=== PATIENT | female | born 1995 | race Asian ===

== ENCOUNTER 2017-01-13 16:20 | Emergency (ER) | payer OTHER ==
[~2017-01-13] VITALS: Ht 165.1 cm; Wt 49.0 kg
[2017-01-13 16:23] VITALS: Ht 165.1 cm; Wt 49.0 kg
--- NOTE | 2017-01-13 16:52 | ERA ---
ER Documentation Chief Complaint Date/Time DATE: 01/13/17 TIME: 16:42 Chief Complaint suicidal ideation JAYASHREE Is a 21-year-old female with a past medical history of diabetes presents to the emergency department with suicidal thoughts over the past 2 days. Her sister indicates that she had phoned her and stated she was sorry for hurting her. Her sister indicates however that there has been no physical or verbal abuse towards the sister by the patient. She indicates she is undergoing a significant amount of stress. She states she is still "coming up with a plan to kill herself." She indicates that she drinks alcohol on a daily basis and her last consumption of alcohol was roughly 12 hours ago. She denies any illicit drug use. She denies any fever shaking or chills. She has no weight loss. She states she has never had similar symptoms in the past of wanting to hurt herself. ROS All systems reviewed and are negative except as per history of present illness. Physical Exam Vitals Vital Signs Date Time Temp Pulse Resp B/P Pulse Ox O2 Delivery O2 Flow Rate FiO2 01/13/17 16:23 98.3 95 18 105/65 98 Physical Exam Constitutional:Well-developed. Well-nourished. HEENT:Normocephalic. Atraumatic.Pupils were equal round reactive to light. Moist mucous membranes.No tonsillar exudates. Neck: No nuchal rigidity. No lymphadenopathy. No posterior cervical spine tenderness or step-offs. Respiratory: Not using accessory muscles of respiration.Lungs were clear to auscultation bilaterally. No rhonchi. No rales. No wheezing. Cardiovascular: Regular rate regular rhythm.No murmurs. No rubs were appreciated.S1, S2 normal. Distal pulses are palpable 2+ bilaterally. GI: Abdomen was soft. Nontender. Non Distended. No pulsatile abdominal masses or bruits. No rebound. No guarding. Bowel sounds were present and normal. Muscle skeletal: Full range of motion of both the upper and lower extremities bilaterally.Normal muscle tone.No assymetrical calf tenderness or swelling. Skin: No petechia, no purpura. No lesions on the palms or the soles of the feet. No maculopapular rash. NEURO: Patient was alert, awake, orientated x3.No facial droop. Gait observed and normal with no ataxia.Speech had regular rate and rhythm. No focal neurological deficits. PSYCH: Patient was very tearful. Made poor eye contact. Was very guarded and reluctant to answer questions. Soft-spoken. No tangential thinking. Positive suicidal thoughts and ideations. No auditory tactile or visual hallucinations. Result Diagram: 01/13/17 1725 01/13/17 1725 Results 24 hrs Laboratory Tests Test 01/13/17 17:18 01/13/17 17:25 Urine Color YELLOW Urine Clarity SLIGHTLY CLOUDY Urine pH 5.0 Urine Specific [place] 1.015 Urine Ketones NEGATIVEmg/dL Urine Nitrite NEGATIVEmg/dL Urine Bilirubin NEGATIVEmg/dL Urine Urobilinogen 2+mg/dL Urine Leukocyte Esterase NEGATIVELeu/ul Urine Microscopic RBC 7/HPF Urine Microscopic WBC 1/HPF Urine Squamous Epithelial Cells MODERATE/HPF Urine Mucus MANY/HPF Urine Hemoglobin 2+mg/dL Urine Glucose NEGATIVEmg/dL Urine Total Protein NEGATIVEmg/dl White Blood Count 6.110^3/ul Red Blood Count 4.8510^6/ul Hemoglobin 14.4g/dl Hematocrit 43.3% Mean Corpuscular Volume 89.3fl Mean Corpuscular Hemoglobin 29.7pg Mean Corpuscular Hemoglobin Concent 33.3g/dl Red Cell Distribution Width 12.5% Platelet Count 60682^3/UL Mean Platelet Volume 9.3fl Neutrophils % 42.8% Lymphocytes % 37.4% Monocytes % 8.9% Eosinophils % 9.5% Basophils % 1.1% Nucleated Red Blood Cells % 0.0/100WBC Neutrophils # 2.610^3/ul Lymphocytes # 2.310^3/ul Monocytes # 0.510^3/ul Eosinophils # 0.610^3/ul Basophils # 0.110^3/ul Nucleated Red Blood Cells # 0.010^3/ul Prothrombin Time 13.0Sec Prothrombin Time Ratio 1.0 INR International Normalized Ratio 0.98 Activated Partial Thromboplast Time 29.9Sec Sodium Level 141mmol/L Potassium Level 4.1mmol/L Chloride Level 101mmol/L Carbon Dioxide Level 28mmol/L Anion Gap 16 Blood Urea Nitrogen 9mg/dl Creatinine 0.66mg/dl Glucose Level 82mg/dl Calcium Level 9.7mg/dl Total Bilirubin 0.6mg/dl Direct Bilirubin 0.00mg/dl Indirect Bilirubin 0.6mg/dl Aspartate Amino Transf (AST/SGOT) 40IU/L Alanine Aminotransferase (ALT/SGPT) 48IU/L Alkaline Phosphatase 66IU/L Total Protein 9.0g/dl Albumin 5.0g/dl Globulin 4.00g/dl Albumin/Globulin Ratio 1.25 Salicylates Level < 1.0mg/dl Urine Opiates Screen Negative Acetaminophen Level < 10.0ug/ml Urine Barbiturates Negative Urine Amphetamines Screen Negative Urine Benzodiazepines Screen Positive Urine Cocaine Screen Positive Urine Cannabinoids Negative Ethyl Alcohol Level < 10.0mg/dl Current Medications Medications (Trade) Dose Ordered Sig/Elizabeth Route PRN Reason Start Time Stop Time Status Last Admin Dose Admin Thiamine HCl (Vitamin B1) 100 mg ONCE ONCE PO 01/13/17 19:30 01/13/17 19:31 DC Olanzapine (Zyprexa) 5 mg ONCE ONCE PO 01/13/17 19:30 01/13/17 19:31 DC Permethrin (Elimite 5% Cr) 1 applic ONCE ONCE TOP 01/13/17 20:30 01/13/17 20:31 DC Procedures/MDM The patient presented to the emergency department with an active suicidal ideation. My differential diagnosis included but was not limited to major depressive disorder, normal despondency, bipolar disorder, schizophrenia, anxiety disorder, borderline personality disorder, antisocial personality disorder, organic mental disorder, bereavement or alcohol or drug abuse. Ancillary lab work was obtained including blood alcohol level, drug screen and serum toxicology panel. The patient was provided a safe environment while in the emergency department with appropriate supervision. The patient will be seen and evaluated by the tele-psychiatrist as the patient did express suicidal thoughts and ideations. I spoke with the psychologist who indicated the patient needs to be placed on 5150. Patient was given thiamine for prevention of alcohol withdrawals as well as Zyprexa. The patient sister was informed. She also indicated that she was going to attempt to escape" was going to put this on [employer]." The patient appeared to be very paranoid but this improved with Zyprexa. Departure Diagnosis: Primary Impression: Suicidal ideation Condition: Serious DOMINGA ALAN Jan 13, 2017 16:52
[2017-01-13 17:34] LABS: ADD UMIC YES; UR ASCORBIC ACID NEGATIVE (NEGATIVE); UR BILIRUBIN (Dip) NEGATIVE (NEGATIVE); UR BLOOD (Dip) 2+ mg/dL (NEGATIVE); UR CLARITY SLIGHTLY CLOUDY (CLEAR); UR COLOR YELLOW (YELLOW); UR GLUCOSE (Dip) NEGATIVE (NEGATIVE); UR KETONES (Dip) NEGATIVE (NEGATIVE); UR LEUKOCYTE ESTERASE (Dip) NEGATIVE Leu/ul (NEGATIVE); UR MUCUS MANY /HPF (NONE SEEN); UR NITRITE (Dip) NEGATIVE (NEGATIVE); UR RBC 7 /HPF (0-5); UR SPECIFIC GRAVITY (Dip) 1.015 (1.003-1.030); UR SQUAMOUS EPITHELIAL CELL MODERATE /HPF (FEW); UR TOTAL PROTEIN (Dip) NEGATIVE (NEGATIVE); UR UROBILINOGEN (Dip) 2+ mg/dL (NEGATIVE)
[2017-01-13 17:43] LABS: BASOPHIL # 0.1 10^3/ul (0.0-0.1); BASOPHILS % 1.1 % (0.0-2.0); EOSINOPHILS # 0.6 10^3/ul (0.0-0.5); EOSINOPHILS % 9.5 % (0.0-7.0); HEMATOCRIT 43.3 % (37.0-47.0); HEMOGLOBIN 14.4 g/dl (12.0-16.0); LYMPHOCYTES # 2.3 10^3/ul (0.8-2.9); LYMPHOCYTES % 37.4 % (15.0-51.0); MEAN CORPUSCULAR HEMOGLOBIN 29.7 pg (29.0-33.0); MEAN CORPUSCULAR HGB CONC 33.3 g/dl (32.0-37.0); MEAN CORPUSCULAR VOLUME 89.3 fl (82.0-101.0); MEAN PLATELET VOLUME 9.3 fl (7.4-10.4); MONOCYTE # 0.5 10^3/ul (0.3-0.9); MONOCYTES % 8.9 % (0.0-11.0); NEUTROPHIL # 2.6 10^3/ul (1.6-7.5); NEUTROPHILS % 42.8 % (39.0-77.0); PLATELET COUNT 395 10^3/UL (140-415); RED BLOOD COUNT 4.85 10^6/ul (4.20-5.40); RED CELL DISTRIBUTION WIDTH 12.5 % (11.5-14.5); WHITE BLOOD COUNT 6.1 10^3/ul (4.8-10.8)
[2017-01-13 18:01] LABS: ALANINE AMINOTRANSFERASE 48 IU/L (13-69); ALBUMIN/GLOBULIN RATIO 1.25; ALKALINE PHOSPHATASE 66 IU/L (42-121); ANION GAP 16 (8-16); ASPARTATE AMINO TRANSFERASE 40 IU/L (15-46); BILIRUBIN,INDIRECT 0.6 mg/dl (0-1.1); BILIRUBIN,TOTAL 0.6 mg/dl (0.2-1.3); BLOOD UREA NITROGEN 9 mg/dl (7-20); CALCIUM 9.7 mg/dl (8.4-10.2); CARBON DIOXIDE 28 mmol/L (21-31); CHLORIDE 101 mmol/L (97-110); CREATININE 0.66 mg/dl (0.44-1.00); GLUCOSE 82 mg/dl (70-220); POTASSIUM 4.1 mmol/L (3.5-5.1); SODIUM 141 mmol/L (135-144)
[2017-01-13 18:02] LABS: INR 0.98
[2017-01-13 18:03] LABS: PARTIAL THROMBOPLASTIN TIME 29.9 Sec (25.0-35.0)
[2017-01-13 18:04] LABS: ACETAMINOPHEN < 10.0 ug/ml (10.0-30.0)
[2017-01-13 18:05] LABS: ETHANOL < 10.0 mg/dl; SALICYLATE < 1.0 mg/dl (5.0-30.0)
[2017-01-13 18:07] LABS: BARBITURATES Negative (NEGATIVE)
[2017-01-13 18:08] LABS: BENZODIAZEPINES Positive (NEGATIVE); CANNABINOIDS Negative (NEGATIVE); COCAINE Positive (NEGATIVE); OPIATES Negative (NEGATIVE)
--- NOTE | 2017-01-13 18:33 | PSY ---
Date/Time of Note Date/Time of Note DATE: 01/13/17 TIME: 21:28 Psychiatric Subjective Eval Consent Pt consented to telemedicine: Yes Subjective Evaluation Patient location: emergency Chief Complaint: suicidal ideation History of present illness HPI: Pt is a 21-year-old female with a ho "anxiety" presents to the emergency department with suicidal thoughts over the past 2 days. Per MDs notes, "Her sister indicates that she had phoned her and stated she was sorry for hurting her. Her sister indicates however that there has been no physical or verbal abuse towards the sister by the patient. She indicates she is undergoing a significant amount of stress. She states she is still "coming up with a plan to kill herself." She indicates that she drinks alcohol on a daily basis and her last consumption of alcohol was roughly 12 hours ago. She denies any illicit drug use." She reported same hx to this MD. She added that she has to go to [employer] today because she was born there (sister told MD that neither is true). Stephon Manzano also reported that in her interview with pt pt was paranoid of plice, making loose associations between black lives matter and the police being out to get her. On this MDs interview, pt clearly admitted to SI. On recent nursing notes and Stephon Contreras interview, pt clearly indicated SI with no plan but clearly indicated that she was coming up wiht a plan. Pt continues to deny any drug use or medication use though utox positive for cocaine and bzd. Past Psych Hx: pt reports years ago was treated for anxiety PMhx: diabetes Meds: pt could not report All: denies MSE: very bizarre, latency of response, PMR, very disorganized, loose associations, says things that are irrelevant, paranoid and guarded, admits to AH though unclear what they are saying, admits to si Imp: 21 yo female with psychosis si in context of substance use -5150 psych admit -bzd and etoh w/d precautions -daily thiamine 100mgpo folate 1mg po mvi -for moderate agitation zyprexa 5mg po prn for severe agitation haldol 5mg im ativan 2mg im [id number] im prn Medical history Problems Medical Problems: (1) Suicidal ideation Status: Acute Psychiatric Objective Eval Mental Status Examination: Laboratory Results Laboratory Tests Test 01/13/17 17:18 01/13/17 17:25 Urine Color YELLOW Urine Clarity SLIGHTLY CLOUDY Urine pH 5.0 Urine Specific [place] 1.015 Urine Ketones NEGATIVEmg/dL Urine Nitrite NEGATIVEmg/dL Urine Bilirubin NEGATIVEmg/dL Urine Urobilinogen 2+mg/dL Urine Leukocyte Esterase NEGATIVELeu/ul Urine Microscopic RBC 7/HPF Urine Microscopic WBC 1/HPF Urine Squamous Epithelial Cells MODERATE/HPF Urine Mucus MANY/HPF Urine Hemoglobin 2+mg/dL Urine Glucose NEGATIVEmg/dL Urine Total Protein NEGATIVEmg/dl White Blood Count 6.110^3/ul Red Blood Count 4.8510^6/ul Hemoglobin 14.4g/dl Hematocrit 43.3% Mean Corpuscular Volume 89.3fl Mean Corpuscular Hemoglobin 29.7pg Mean Corpuscular Hemoglobin Concent 33.3g/dl Red Cell Distribution Width 12.5% Platelet Count 63470^3/UL Mean Platelet Volume 9.3fl Neutrophils % 42.8% Lymphocytes % 37.4% Monocytes % 8.9% Eosinophils % 9.5% Basophils % 1.1% Nucleated Red Blood Cells % 0.0/100WBC Neutrophils # 2.610^3/ul Lymphocytes # 2.310^3/ul Monocytes # 0.510^3/ul Eosinophils # 0.610^3/ul Basophils # 0.110^3/ul Nucleated Red Blood Cells # 0.010^3/ul Prothrombin Time 13.0Sec Prothrombin Time Ratio 1.0 INR International Normalized Ratio 0.98 Activated Partial Thromboplast Time 29.9Sec Sodium Level 141mmol/L Potassium Level 4.1mmol/L Chloride Level 101mmol/L Carbon Dioxide Level 28mmol/L Anion Gap 16 Blood Urea Nitrogen 9mg/dl Creatinine 0.66mg/dl Glucose Level 82mg/dl Calcium Level 9.7mg/dl Total Bilirubin 0.6mg/dl Direct Bilirubin 0.00mg/dl Indirect Bilirubin 0.6mg/dl Aspartate Amino Transf (AST/SGOT) 40IU/L Alanine Aminotransferase (ALT/SGPT) 48IU/L Alkaline Phosphatase 66IU/L Total Protein 9.0g/dl Albumin 5.0g/dl Globulin 4.00g/dl Albumin/Globulin Ratio 1.25 Salicylates Level < 1.0mg/dl Urine Opiates Screen Negative Acetaminophen Level < 10.0ug/ml Urine Barbiturates Negative Urine Amphetamines Screen Negative Urine Benzodiazepines Screen Positive Urine Cocaine Screen Positive Urine Cannabinoids Negative Ethyl Alcohol Level < 10.0mg/dl PAVAN OLIVEIRA Jan 13, 2017 18:33
[2017-01-13] MEDS: THIAMINE 100 MG TAB PO ONE ×2 (20:28→20:58)
[2017-01-13] MEDS: OLANZAPINE 5 MG TAB PO ONE ×2 (20:28→20:58)
[2017-01-13] MEDS ORDERED: PERMETHRIN 5% 60 GM CR TOP ONE (20:30)
--- NOTE | 2017-01-14 05:45 | QN ---
Documentation Comment Observation Note: Time: 4 hours Family Hx: No Hypertension Evaluation: Multiple exams showed improving symptoms and no evidence of decompensation ONI PINEDA Jan 14, 2017 05:45
[2017-01-14 06:24] VITALS: BP 100/54; PULSE 74; RESP 16; TEMP 97.7
== END 2017-01-14 06:43 ==
LOC: E/R 16:20
DX: R45.851 Suicidal ideations (principal); E11.9 Type 2 diabetes mellitus without complications
CPT/HCPCS: 36415; 80053; 80306; 80307; 81001; 85025; 85610; 85730; Z7502; Z7610; 99285